=== PATIENT | female | born 1955 | race Two or more races ===

== ENCOUNTER 2020-12-12 09:41 | Outpatient (CLI) | payer OTHER | END 2020-12-12 09:52 | disposition home or self-care (01) | LOC: MAMO-SONO 09:41 | PROVIDERS: ATTEND Specialist | DX: N60.29 Fibroadenosis of unspecified breast (principal); Z12.31 Encounter for screening mammogram for malignant neoplasm of breast ==

== ENCOUNTER 2021-01-13 12:48 | Outpatient (CLI) | payer OTHER | END 2021-01-13 12:50 | disposition home or self-care (01) | LOC: NUCLEAR 12:48 | PROVIDERS: ATTEND Obstetrics & Gynecology | DX: M81.0 Age-related osteoporosis without current pathological fracture (principal) ==